=== PATIENT | male | born 1955 | race Caucasian/White ===

== ENCOUNTER 2019-09-20 22:29 | Emergency (ER) | payer OTHER ==
[~2019-09-20] VITALS: Ht 170.2 cm; Wt 77.0 kg
[~2019-09-20 22:29] MED LIST: ALLO100T30 PO; HYDR-3237 PO; METH4TAB PO; RIVA15TA PO
[2019-09-20 22:31] VITALS: BP 133/77
[2019-09-20] MEDS ORDERED: HYDROcodone/APAP 5/325 TABLET PO ONE (23:00)
[2019-09-20] MEDS ORDERED: HYDROcodone/APAP 5/325 TABLET ONE (23:10)
[2019-09-20] MEDS ORDERED: MICROFIBRILLAR COLLAGEN 1 GM TP ONE ×2 (23:10→23:30)
[2019-09-20] MEDS ORDERED: LIDOCAINE-MPF 1%, 5ML ONE ×2 (23:33→23:50)
[2019-09-21] MEDS ORDERED: LIDOCAINE 1%, 10ML INFIL ONE
[2019-09-21] MEDS ORDERED: MICROFIBRILLAR COLLAGEN 1 GM TP ONE (00:38)
== END 2019-09-21 01:10 | disposition home or self-care (01) ==
LOC: ED 09-21 00:53
DX: S02.5XXA Fracture of tooth (traumatic), initial encounter for closed fracture (principal); S01.511A Laceration without foreign body of lip, initial encounter; S01.412A Laceration without foreign body of left cheek and temporomandibular area, initial encounter; M10.9 Gout, unspecified; Z86.718 Personal history of other venous thrombosis and embolism; W07.XXXA Fall from chair, initial encounter; Y93.89 Activity, other specified; Y92.098 Other place in other non-institutional residence as the place of occurrence of the external cause; Y99.8 Other external cause status
CPT/HCPCS: 12051; 99285